=== PATIENT | male | born 1960 | race Caucasian/White ===

== ENCOUNTER 2018-05-22 07:11 | Emergency (ER) | payer OTHER ==
[2018-05-22 07:22] VITALS: BP 123/69
--- NOTE | 2018-05-22 07:31 | UC ---
Lower Extremity/Ankle HPI - HPI Summary HPI Summary: Twisted his right ankle last night, with pain, bruising and swelling in the lateral malleolar area. - History of Current Complaint Chief Complaint: UCLowerExtremity Stated Complaint: R ANKLE COMPLAINT Time Seen by Provider: 05/22/18 07:25 Hx Obtained From: Patient Onset/Duration: Sudden Onset, Lasting Hours Pain Intensity: 4 Aggravating Factor(s): Standing, Ambulation Alleviating Factor(s): Rest, Elevation, Ice - Risk Factors Gout Risk Factors: Age Over 40 DVT Risk Factors: Negative - Allergies/Home Medications Allergies/Adverse Reactions: Allergies Allergy/AdvReac Type Severity Reaction Status Date / Time No Known Allergies Allergy Verified 12/03/15 14:40 PMH/Surg Hx/FS Hx/Imm Hx Previously Healthy: Yes GI/ History: Gastroesophageal Reflux - Surgical History Surgical History: None - Family History Known Family History: Positive: Non-Contributory - Social History 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 Genitourinary: Positive: Negative Motor: Positive: Negative Neurovascular: Positive: Negative Musculoskeletal: Positive: Negative Neurological: Positive: Negative Psychological: Positive: Negative Is Patient Immunocompromised?: No Physical Exam Triage Information Reviewed: Yes Appearance: Well-Appearing, Pain Distress - mild Vital Signs: Initial Vital Signs Temp 97.9 F 05/22/18 07:14 Pulse 70 05/22/18 07:14 Resp 16 05/22/18 07:14 BP 123/69 05/22/18 07:14 Pulse Ox 98 05/22/18 07:14 Respiratory: Positive: Lungs clear Cardiovascular: Positive: RRR Musculoskeletal Exam: Other - tenderness distal fibula with mild swelling, ecchymosis forming inferior to the malleolus. Mid foot with TTP or swelling. Musculoskeletal: Positive: ROM Limited @ - mild restriction of dorsiflexion and plantar flexion Neurological: Positive: Alert, Muscle Tone Normal Psychological Exam: Normal Skin Exam: Normal Diagnostics - Laboratory Diagnostic Studies Completed/Ordered: Xray right ankle without fracture seen per --pending radiology read. Lower Extremity Course/Dx - Course Course Of Treatment: compression with THAO wrap, elevation, ice as treatment of mild strain. Discussed beginning range of motion exercises. - Differential Dx/Diagnosis Differential Diagnosis/HQI/PQRI: Sprain, Strain Provider Diagnosis: Right ankle sprain Discharge - Sign-Out/Discharge Documenting (check all that apply): Patient Departure All imaging exams completed and their final reports reviewed: No - Discharge Plan Condition: Stable Disposition: HOME Patient Education Materials: Ankle Sprain (ED) Referrals: Luis Hamilton MD [Primary Care Provider] - Additional Instructions: Continue elevation, ice and compression with an THAO wrap. As discussed, we will confirm the radiologist's reading of the xray with you. As the swelling decreases, begin range of motion exercises by tracing the alphabet with your foot. Follow up with Dr. Hamilton if you are having continued pain and swelling. - Billing Disposition and Condition Condition: STABLE Disposition: Home
--- NOTE | 2018-05-22 11:33 | UC ---
- Progress Note Progress Note: Called to confirm that radiologist read of the xray is normal ankle. Course/Dx - Diagnoses Provider Diagnoses: Right ankle sprain Discharge - Sign-Out/Discharge Documenting (check all that apply): Patient Departure All imaging exams completed and their final reports reviewed: No - Discharge Plan Condition: Stable Disposition: HOME Patient Education Materials: Ankle Sprain (ED) Referrals: Luis Hamilton MD [Primary Care Provider] - Additional Instructions: Continue elevation, ice and compression with an THAO wrap. As discussed, we will confirm the radiologist's reading of the xray with you. As the swelling decreases, begin range of motion exercises by tracing the alphabet with your foot. Follow up with Dr. Hamilton if you are having continued pain and swelling. - Billing Disposition and Condition Condition: STABLE Disposition: Home
--- NOTE | 2018-05-23 09:09 | UC ---
- Progress Note Progress Note: Right ankle x-ray from May 23 2018 was interpreted by the radiologist and the provider was aware of the interpretation Course/Dx - Diagnoses Provider Diagnoses: Right ankle sprain Discharge - Sign-Out/Discharge Documenting (check all that apply): Patient Departure All imaging exams completed and their final reports reviewed: Yes - Discharge Plan Condition: Stable Disposition: HOME Patient Education Materials: Ankle Sprain (ED) Referrals: Luis Hamilton MD [Primary Care Provider] - Additional Instructions: Continue elevation, ice and compression with an THAO wrap. As discussed, we will confirm the radiologist's reading of the xray with you. As the swelling decreases, begin range of motion exercises by tracing the alphabet with your foot. Follow up with Dr. Hamilton if you are having continued pain and swelling. - Billing Disposition and Condition Condition: STABLE Disposition: Home
== END 2018-05-22 08:16 | disposition home or self-care (01) ==
LOC: UCEAST 07:11
DX: S93.401A Sprain of unspecified ligament of right ankle, initial encounter (principal); X50.1XXA Overexertion from prolonged static or awkward postures, initial encounter; Y92.9 Unspecified place or not applicable
CPT/HCPCS: 99212; G0463